=== PATIENT | male | born 1955 | race Caucasian/White ===

== ENCOUNTER → 2019-05-25 | Outpatient (CLI) | payer OTHER ==
--- NOTE | 2019-05-25 11:24 | 2DMMODE ---
[place] [address] 2 D/M-MODE ECHOCARDIOGRAM Name: JULIANA LINO Room: [facility]#: [id number] Admission: 05/25/19 Attend Phys: Braeden Carbone, Discharge: Date of : 59 Date of Service: 05/25/19 1124 Report #: [id number] THIS REPORT FOR: //name// APPROVED REPORT Study performed: 05/25/2019 08:06:25 EXAM: Comprehensive 2D, Doppler, and color-flow Echocardiogram Patient Location: Out-Patient BSA: 2.06 HR: 52 bpm BP: 116/82 mmHg Other Information Study Quality: Good Indications Dyspnea 2D Dimensions IVSd: 10.82 (7-11mm) LVOT Diam: 20.87 (18-24mm) LVDd: 46.88 mm PWd: 9.92 (7-11mm) Ascending Ao: 32.06 (22-36mm) LVDs: 35.65 (25-40mm) Aortic Root: 30.98 mm Volumes Left Atrial Volume (Systole) LA ESV Index: 16.10 mL/m2 Aortic Valve AoV Peak Kevon.: 1.33 m/s AO Peak Gr.: 7.03 mmHg LVOT Max P.06 mmHg AO Mean Gr.: 3.40 mmHg LVOT Mean P.30 mmHg LVOT Max V: 0.87 m/s AO V2 VTI: 26.67 cm LVOT Mean V: 0.51 m/s NICOLE (VTI): 2.71 cm2 LVOT V1 VTI: 21.15 cm Mitral Valve E/A Ratio: 0.89 MV Decel. Time: 279.71 ms MV E Max Kevon.: 0.65 m/s MV PHT: 81.12 ms MVA (PHT): 2.71 [place]2 [place] [address] 2 D/M-MODE ECHOCARDIOGRAM Name: JULIANA LINO Room: [facility]#: [id number] Admission: 05/25/19 Attend Phys: Braeden Carbone, Discharge: Date of : 59 Date of Service: 05/25/19 1124 Report #: [id number] TDI E/Lateral E': 5.91 E/Medial E': 7.22 Medial E' Kevon.: 0.09 m/s Lateral E' Kevon.: 0.11 m/s Pulmonary Valve PV Peak Kevon.: 0.95 m/s PV Peak Gr.: 3.61 mmHg Left Ventricle The left ventricle is normal size. There is normal LV segmental wall motion. There is normal left ventricular wall thickness. Left ventricular systolic function is normal. LVEF is 50-55%. Grade I - abnormal relaxation pattern. Right Ventricle The right ventricle is normal size. The right ventricular systolic function is normal. Atria The left atrium size is normal. The right atrium size is normal. Aortic Valve The aortic valve is normal in structure. No aortic regurgitation is present. There is no aortic valvular stenosis. Mitral Valve The mitral valve is normal in structure. Trace mitral regurgitation. No evidence of mitral valve stenosis. Tricuspid Valve The tricuspid valve is normal in structure. There is no tricuspid valve regurgitation noted. Pulmonic Valve The pulmonary valve is normal in structure. Trace pulmonic regurgitation. Great Vessels The aortic root is normal in size. IVC is normal in size and collapses >50% with inspiration. Pericardium There [place] [address] 2 D/M-MODE ECHOCARDIOGRAM Name: JULIANA LINO Room: [facility]#: [id number] Admission: 05/25/19 Attend Phys: Braeden Carbone, Discharge: Date of : 59 Date of Service: 05/25/19 1124 Report #: [id number] <Conclusion> The left ventricle is normal size. There is normal left ventricular wall thickness. Left ventricular systolic function is normal. LVEF is 50-55%. Grade I - abnormal relaxation pattern. There is normal LV segmental wall motion. Trace mitral regurgitation. Trace pulmonic regurgitation. IVC is normal in size and collapses >50% with inspiration. <ELECTRONICALLY SIGNED> By: Baudilio Odell MD, FACC 05/25/19 1124 [id number] Baudilio Odell MD, FACC /INF
== END ==
LOC: M.CRD 07:53
DX: R79.89 Other specified abnormal findings of blood chemistry (principal); R06.00 Dyspnea, unspecified